=== PATIENT | male | born 1990 | race Hispanic/Latino ===

== ENCOUNTER 2021-10-24 21:40 | Emergency (ER) | payer OTHER ==
--- NOTE | 2021-10-24 23:22 | EDPHYS ---
Physician Documentation [facility] Name: Bennie Flores Age: 31 yrs Sex: Male : 1990 Arrival Date: 10/24/2021 Time: 21:44 Bed 16 Private MD: ED Physician Ashwin Canales HPI: 10/24 23:15 This 31 yrs old Male presents to ER via Ambulatory with complaints of Hand silke Injury - Left. 23:15 The patient or guardian reports decreased range of motion, injury, pain. The complaints silke affect the left hand diffusely. Context: The problem was sustained at home, resulted from a direct blow. Onset: The symptoms/episode began/occurred just prior to arrival. Modifying factors: The symptoms are alleviated by elevation, holding still, ice/coldpack to affected area, the symptoms are aggravated by movement, dependent position. Associated signs and symptoms: The patient has no apparent associated signs or symptoms. Severity of symptoms: At their worst the symptoms were moderate, in the emergency department the symptoms are unchanged. The patient has not experienced similar symptoms in the past. Historical: - Allergies: 22:06 Haldol; lg3 - Home Meds: 22:06 citalopram oral [Active]; Benztropine Mesylate Oral [Active]; Tegretol Oral [Active]; lg3 olanzapine oral [Active]; Hydroxyzine Oral [Active]; - PMHx: 22:06 Schizophrenia; Anxiety; Depressive disorder; lg3 - PSHx: 22:06 left ankle; lg3 - Immunization history:: Adult Immunizations up to date, Client reports having NOT received the Covid vaccine. - Social history:: Smoking status: Patient reports the use of cigarette tobacco products, smokes one pack cigarettes per day. Patient uses alcohol, but reports only rare drinking. - Family history:: not pertinent. ROS: 23:15 Constitutional: Negative for fever, chills, and weight loss, Eyes: Negative for injury, silke pain, redness, and discharge, ENT: Negative for injury, pain, and discharge, Neck: Negative for injury, pain, and swelling, Cardiovascular: Negative for chest pain, palpitations, and edema, Respiratory: Negative for shortness of breath, cough, wheezing, and pleuritic chest pain, Abdomen/GI: Negative for abdominal pain, nausea, vomiting, diarrhea, and constipation, Back: Negative for injury and pain, : Negative for injury, bleeding, discharge, and swelling, Skin: Negative for injury, rash, and discoloration, Neuro: Negative for headache, weakness, numbness, tingling, and seizure, Psych: Negative for depression, anxiety, suicide ideation, homicidal ideation, and hallucinations, Allergy/Immunology: Negative for hives, rash, and allergies, Endocrine: Negative for neck swelling, polydipsia, polyuria, polyphagia, and marked weight changes, Hematologic/Lymphatic: Negative for swollen nodes, abnormal bleeding, and unusual bruising. 23:15 MS/extremity: Positive for injury or acute deformity, contusion, decreased range of motion, pain, swelling, tenderness. Exam: 23:15 Constitutional: This is a well developed, well nourished patient who is awake, alert, silke and in no acute distress. Head/Face: Normocephalic, atraumatic. Eyes: Pupils equal round and reactive to light, extra-ocular motions intact. Lids and lashes normal. Conjunctiva and sclera are non-icteric and not injected. Cornea within normal limits. Periorbital areas with no swelling, redness, or edema. ENT: Nares patent. No nasal discharge, no septal abnormalities noted. Tympanic membranes are normal and external auditory canals are clear. Oropharynx with no redness, swelling, or masses, exudates, or evidence of obstruction, uvula midline. Mucous membranes moist. Neck: Trachea midline, no thyromegaly or masses palpated, and no cervical lymphadenopathy. Supple, full range of motion without nuchal rigidity, or vertebral point tenderness. No Meningismus. Chest/axilla: Normal chest wall appearance and motion. Nontender with no deformity. No lesions are appreciated. Cardiovascular: Regular rate and rhythm with a normal S1 and S2. No gallops, murmurs, or rubs. Normal PMI, no JVD. No pulse deficits. Respiratory: Lungs have equal breath sounds bilaterally, clear to auscultation and percussion. No rales, rhonchi or wheezes noted. No increased work of breathing, no retractions or nasal flaring. Abdomen/GI: Soft, non-tender, with normal bowel sounds. No distension or tympany. No guarding or rebound. No evidence of tenderness throughout. Back: No spinal tenderness. No costovertebral tenderness. Full range of motion. Skin: Warm, dry with normal turgor. Normal color with no rashes, no lesions, and no evidence of cellulitis. Neuro: Awake and alert, GCS 15, oriented to person, place, time, and situation. Cranial nerves II-XII grossly intact. Motor strength 5/5 in all extremities. Sensory grossly intact. Cerebellar exam normal. Normal gait. Psych: Awake, alert, with orientation to person, place and time. Behavior, mood, and affect are within normal limits. 23:15 Musculoskeletal/extremity: Extremities: grossly normal except: decreased ROM, deformity, pain, ROM: intact in all extremities, limited active range of motion due to pain, limited passive range of motion due to pain, Pulses: are normal with no appreciated deficits, Sensation intact. Compartment Syndrome exam of affected extremity: is normal. DVT Exam: negative Homans' sign noted on exam, no appreciated bluish discoloration, no erythema, no increased warmth, pain, swelling, tenderness. Vital Signs: 22:03 BP 124 / 74; Pulse 98; Resp 17 S; Temp 98.5(TE); Pulse Ox 98% on R/A; Weight 82.55 kg lg3 (R); Height 5 ft. 9 in. (175.26 cm) (R); Pain 10/10; 22:03 Body Mass Index 26.88 (82.55 kg, 175.26 cm) lg3 Procedures: 23:18 Splinting: Splint applied to left hand using Orthoglass splint, applied by tech. silke Examined by me, post splint application: neurovascular intact, 2+ distal pulses palpable, brisk capillary refill noted, Patient tolerated well. MDM: 23:00 Patient medically screened. silke 23:18 Differential diagnosis: closed fracture. Data reviewed: vital signs, nurses notes. Data silke interpreted: conveyor monitor: rate is 98 beats/min, rhythm is regular, Pulse oximetry: on room air is 98 %. Test interpretation: by ED physician or midlevel provider: plain radiologic studies. Counseling: I had a detailed discussion with the patient and/or guardian regarding: the historical points, exam findings, and any diagnostic results supporting the discharge/admit diagnosis, radiology results, the need for outpatient follow up, for definitive care, a orthopedic surgeon, a psychiatrist. 10/24 22:13 Order name: XRAY Hand LEFT 3 View lg3 10/24 23:14 Order name: Ulnar Gutter splint; Complete Time: 00:46 silke Administered Medications: 10/25 00:06 Drug: Ativan (LORazepam) 1 mg Route: PO; ke1 00:06 Drug: Geodon (ziprasidone) 10 mg Route: IM; Site: left vastus lateralis; ke1 00:06 Drug: [place] (HYDROcodone-acetaminophen) (7.5 mg-325 mg) 1 tabs Route: PO; ke1 Disposition Summary: 10/24/21 23:21 Discharge Ordered Location: Home silke Problem: new silke Symptoms: have improved silke Condition: Stable silke Diagnosis - Displaced fracture of shaft of fifth metacarpal bone, left hand silke - Schizophrenia, unspecified silke Followup: silke - With: Private Physician - When: 2 - 3 days - Reason: Recheck today's complaints, Continuance of care, Re-evaluation by your physician Followup: silke - With: Fredi Bear MD - When: 2 - 3 days - Reason: Recheck today's complaints, Continuance of care, Re-evaluation by your physician Discharge Instructions: - Discharge Summary Sheet silke - Boxer's Fracture silke - Metacarpal Fracture silke - Schizophrenia silke - Metacarpal Fracture, [id number] silke - Managing Schizophrenia silke Forms: - Medication Reconciliation Form silke - Thank You Letter silke - Antibiotic Education silke - Prescription Opioid Use silke Prescriptions: - Ibuprofen 600 mg Oral Tablet - take 1 tablet by ORAL route every 6 hours As needed take with food; 20 tablet; silke Refills: 0, Product Selection Permitted - Tylenol-Codeine #3 300 mg-30 mg Oral - take 2 tablet by ORAL route every 6 hours; 15 tablet; Refills: 0, Product [facility] Selection Permitted Signatures: Dispatcher [employer] Ashwin Rivera MD MD cha Gibson, Lacie RN RN lg3 Alison Franco RN RN ke1
--- NOTE | 2021-10-24 23:22 | ER ---
Nurse's Notes [facility] Name: Bennie Flores Age: 31 yrs Sex: Male : 1990 Arrival Date: 10/24/2021 Time: 21:44 Bed 16 Private MD: Diagnosis: Displaced fracture of shaft of fifth metacarpal bone, left hand;Schizophrenia, unspecified Presentation: 10/24 22:03 Chief complaint: Patient states: sitting outside and started hearing voices and seeing lg3 people. thought he was swinging at this person he was seeing but accidently hit ground instead. left hand swelling and pain. Coronavirus screen: Client denies travel out of the [place] in the last 14 days. At this time, the client does not indicate any symptoms associated with coronavirus-19. Ebola Screen: No symptoms or risks identified at this time. Initial Sepsis Screen: Does the patient meet any 2 criteria? No. Patient's initial sepsis screen is negative. Does the patient have a suspected source of infection? No. Patient's initial sepsis screen is negative. Risk Assessment: Do you want to hurt yourself or someone else? Patient reports no desire to harm self or others. Onset of symptoms was October 24, 2021. 22:03 Method Of Arrival: Ambulatory lg3 22:03 Acuity: TEETEE 3 lg3 Triage Assessment: 22:06 General: Appears in no apparent distress. uncomfortable, Behavior is calm, cooperative. lg3 Pain: Complains of pain in left hand. EENT: No deficits noted. No signs and/or symptoms were reported regarding the EENT system. Neuro: No deficits noted. Level of Consciousness is awake, alert, obeys commands, Oriented to person, place, time, situation. Cardiovascular: No deficits noted. Denies chest pain, shortness of breath. Respiratory: No deficits noted. Airway is patent Trachea midline Respiratory effort is even, unlabored, Respiratory pattern is regular, symmetrical. GI: No deficits noted. No signs and/or symptoms were reported involving the gastrointestinal system. Abdomen is round non-distended. : No deficits noted. No signs and/or symptoms were reported regarding the genitourinary system. Derm: No deficits noted. swelling to left hand. Musculoskeletal: No deficits noted. Circulation, motion, and sensation intact. Capillary refill < 3 seconds, Range of motion: intact in all extremities. Historical: - Allergies: 22:06 Haldol; lg3 - Home Meds: 22:06 citalopram oral [Active]; Benztropine Mesylate Oral [Active]; Tegretol Oral [Active]; lg3 olanzapine oral [Active]; Hydroxyzine Oral [Active]; - PMHx: 22:06 Schizophrenia; Anxiety; Depressive disorder; lg3 - PSHx: 22:06 left ankle; lg3 - Immunization history:: Adult Immunizations up to date, Client reports having NOT received the Covid vaccine. - Social history:: Smoking status: Patient reports the use of cigarette tobacco products, smokes one pack cigarettes per day. Patient uses alcohol, but reports only rare drinking. - Family history:: not pertinent. Screenin:10 Abuse screen: Denies threats or abuse. Denies injuries from another. Nutritional lg3 screening: No deficits noted. Tuberculosis screening: No symptoms or risk factors identified. Fall Risk None identified. Vital Signs: 22:03 BP 124 / 74; Pulse 98; Resp 17 S; Temp 98.5(TE); Pulse Ox 98% on R/A; Weight 82.55 kg lg3 (R); Height 5 ft. 9 in. (175.26 cm) (R); Pain 10/10; 22:03 Body Mass Index 26.88 (82.55 kg, 175.26 cm) lg3 ED Course: 21:44 Patient arrived in ED. kz 22:06 Triage completed. lg3 22:06 Arm band placed on right wrist. lg3 22:57 XRAY Hand LEFT 3 View In Process Unspecified. EDMS 23:00 Ashwin Canales MD is Attending Physician. silke 23:20 Fredi Bear MD is Referral Physician. silke 23:41 Alison Franco RN is Primary Nurse. ke1 10/25 00:46 Orthoglass splint: Ulnar gutter/Boxer splint applied on left forearm. ds4 01:00 No provider procedures requiring assistance completed. Patient did not have IV access ke1 during this emergency room visit. Administered Medications: 00:06 Drug: Ativan (LORazepam) 1 mg Route: PO; ke1 00:06 Drug: Geodon (ziprasidone) 10 mg Route: IM; Site: left vastus lateralis; ke1 00:06 Drug: [place] (HYDROcodone-acetaminophen) (7.5 mg-325 mg) 1 tabs Route: PO; ke1 Outcome: 10/24 23:21 Discharge ordered by MD. edouard 10/25 01:00 Discharged to home ambulatory. ke1 Condition: good Discharge instructions given to patient, Instructed on discharge instructions, follow up and referral plans. 01:02 Instructed on medication usage, Demonstrated understanding of instructions, follow-up ke1 care, medications, Prescriptions given X 2. 01:02 Patient left the ED. ke1 Signatures: Dispatcher [employer] EDMS Ashwin Canales MD MD cha Swanson, Donovan ds4 Laura Nur, RN RN [email or web address] Alison Franco RN RN ke1 Natacha Arvizu
[2021-10-24] MEDS ORDERED: HYDROCODONE/APAP 7.5/325 MG TAB ONE (23:48)
[2021-10-24] MEDS ORDERED: LORAZEPAM 1 MG TABLET ONE (23:49)
[2021-10-24] MEDS ORDERED: ZIPRASIDONE MESYLA 20 MG/VIAL IM ONE (23:49)
[2021-10-25 03:31] VITALS: BP 124/74; TEMP 98.5; O2SAT 98
--- NOTE | 2021-10-25 15:32 | RAD REPORT ---
EXAM DESCRIPTION: RAD - Hand Left 3 View - 10/24/2021 10:55 pm CLINICAL HISTORY: DEFORMITY COMPARISON: None. TECHNIQUE: XR HAND 3 OR MORE VIEWS 10/24/2021 10:13 PM CDT FINDINGS: There is a mildly displaced and angulated fracture of the midshaft of the fifth metacarpal . Joint spaces are preserved. There is soft tissue swelling overlying the fifth metacarpal. IMPRESSION: Fifth metacarpal fracture. Electronically signed by: Obi Hunt MD 10/24/2021 11:12 PM CDT Due to temporary technical issues with the PACS/Fluency reporting system, reports are being signed by the in house radiologists without review as a courtesy to insure prompt reporting. The interpreting radiologist is fully responsible for the content of the report.
== END 2021-10-25 01:02 | disposition home or self-care (01) ==
LOC: ER 21:40
PROC: 2W3DX1Z Immobilization of Left Lower Arm using Splint (ICD-10-PCS; principal; 2021-10-25)
DX: S62.327A Displaced fracture of shaft of fifth metacarpal bone, left hand, initial encounter for closed fracture (principal); F20.9 Schizophrenia, unspecified; W22.8XXA Striking against or struck by other objects, initial encounter; Y92.009 Unspecified place in unspecified non-institutional (private) residence as the place of occurrence of the external cause; F17.210 Nicotine dependence, cigarettes, uncomplicated; Z88.5 Allergy status to narcotic agent
CPT/HCPCS: 73130; 96372; 99284; 29125; J3486

== ENCOUNTER 2023-04-10 09:13 | Emergency (ER) | payer OTHER ==
--- OUTSIDE RECORDS SUMMARY | 2023-04-10 09:16 | XMS REPORT | Continuity of Care Document ---
:1990 Author Organization [facility] Address [address] [place] [id number] Care Team Providers Name Role Phone RAISA Attending Clinician Unavailable RAISA Admitting Clinician Unavailable Problems This patient has no known problems. Allergies, Adverse Reactions, Alerts This patient has no known allergies or adverse reactions. Medications This patient has no known medications. Procedures This patient has no known procedures. Encounters Start End Encounter Admission Attending Care Care Encounter Source Date/Time Date/Time Type Type Clinicians Facility Department ID 2022-02-06 2022-02-06 Outpatient [facility]LOOD [facility] [id number] 03:41:00 03:41:00 HN [id number] [facility] Program Results This patient has no known results.
[2023-04-10] MEDS ORDERED: AMOX/K CLAV 875 MG TAB ONE (09:40)
[2023-04-10] MEDS ORDERED: TDAP (DIPHTH,PERTUSS(ACELL),TET VAC) 0.5 ML VIAL IMVAC ONE (09:41)
[2023-04-10] MEDS ORDERED: LIDOCAINE 1% MPF 5 ML VIAL ONE (09:47)
--- NOTE | 2023-04-10 10:00 | EDPHYS ---
Physician Documentation [facility] Name: Bennie Flores Age: 33 yrs Sex: Male : 1990 Arrival Date: 04/10/2023 Time: : Bed 6 Private MD: ED Physician Sundar Ulloa HPI: 04/10 10:02 This 33 yrs old Male presents to ER via Ambulatory with complaints of Dog Bite.kb 10:02 The patient was bitten on the left calf, by a dog, outdoors. Onset: The kb symptoms/episode began/occurred just prior to arrival. Secondary to the bite the patient reports a laceration, a puncture wound. Associated signs and symptoms: Pertinent positives: tenderness. Severity of symptoms: At their worst the symptoms were mild, moderate, in the emergency department the symptoms are unchanged. The patient has not experienced similar symptoms in the past. The patient has not recently seen a physician. Pt was walking to the store and the neighbors dog came out and bit his calf. PD notified prior to pt's arrival. Historical: - Allergies: 09:21 Haldol; ap3 - PMHx: 09:21 Anxiety; depressive disorder; Schizophrenia; ap3 - PSHx: 09:21 Left ankle; ap3 - Immunization history:: Client reports receiving the 2nd dose of the Covid vaccine, Last tetanus immunization: not immunized. - Social history:: Smoking status: Patient reports the use of cigarette tobacco products, smokes one pack cigarettes per day. ROS: 10:01 Constitutional: Negative for fever, chills, and weight loss. kb 10:01 Skin: Positive for laceration(s), puncture, of the left calf. 10:01 All other systems are negative. Exam: 10:01 Constitutional: This is a well developed, well nourished patient who is awake, alert, kb and in no acute distress. Head/Face: Normocephalic, atraumatic. ENT: Moist Mucous membranes Cardiovascular: Regular rate Respiratory: Respirations even and unlabored. No increased work of breathing. Talking in full sentences MS/ Extremity: Pulses equal, no cyanosis. Neurovascular intact. Full, normal range of motion. Neuro: Awake and alert, GCS 15, oriented to person, place, time, and situation. Moves all extremities. Normal gait. 10:01 Skin: injury, bite(s), superficial, of the left calf, laceration(s), the wound is approximately 3 cm(s), of the left calf, that can be described as clean, no foreign body, linear, without bleeding. Vital Signs: 09:20 BP 114 / 67; Pulse 88; Resp 18; Temp 98.8; Pulse Ox 100% ; Weight 90.72 kg; Pain 2/10; ap3 09:20 BP 118 / 72; Pulse 85; Resp 16; Pulse Ox 99% ; ko1 09:20 Pain Scale: Adult ap3 Laceration: 09:59 Wound Repair of 3cm ( 1.2in ) subcutaneous laceration to left calf. Linear shaped.. kb Distal neuro/vascular/tendon intact. Anesthesia: Wound infiltrated with 5 mls of 1% lidocaine. Wound prep: Extensive cleansing with betadine by me, Wound irrigation with saline by me. Skin closed with 3 4-0 Prolene using simple sutures and sterile technique. Patient tolerated well. MDM: 09:17 Patient medically screened. kb 10:02 Differential diagnosis: superficial laceration, tendon injury, vascular injury. Data kb reviewed: vital signs, nurses notes. Historians other than the Patient: Parent: mother. Counseling: I had a detailed discussion with the patient and/or guardian regarding the historical points, exam findings, and any diagnostic results supporting the discharge/admit diagnosis, the need for outpatient follow up, a family practitioner, to return to the emergency department if symptoms worsen or persist or if there are any questions or concerns that arise at home. 04/10 09:21 Order name: Gloves, Sterile; Complete Time: 09:33 kb 04/10 09:21 Order name: Prolene, Sutures; Complete Time: 09:33 kb 04/10 09:21 Order name: Setup Suture Tray; Complete Time: 09:33 kb Administered Medications: 09:30 Drug: Amoxicillin-Clavulanate PO 875 mg Route: PO; ko1 09:33 Drug: Tetanus-Diphtheria Toxoid IM Adult 0.5 ml {Inpatient Care Manager Rn: [employer] ko1 Exp: 11/15/2024. Lot #: [id number]. } Route: IM; Site: left deltoid; 09:52 Drug: Lidocaine Infiltration (1 %) 1 vials {Note: Administered by Nichole Jasper, ld1 TIN WHIZ MACHINE OPERATOR.} Volume: 5 ml; Route: Infiltration; Disposition: 10:32 Co-signature as Attending Physician, Sundar Ulloa MD I reviewed the patient's care rt provided by the Advanced Practice Provider and agree with the diagnosis and treatment plan. Disposition Summary: 04/10/23 10:00 Discharge Ordered Location: Home kb Condition: Stable kb Diagnosis - Bitten by dog kb Followup: kb - With: Emergency Department - When: As needed - Reason: Worsening of condition Followup: kb - With: Private Physician - When: 2 - 3 days - Reason: Recheck today's complaints, Continuance of care, Re-evaluation by your physician Discharge Instructions: - Discharge Summary Sheet kb - Animal Bite, Adult, [id number] kb Forms: - Medication Reconciliation Form kb - Thank You Letter kb - Antibiotic Education kb - Prescription Opioid Use kb - Patient Portal Instructions kb - Leadership Thank You Letter kb Prescriptions: - Augmentin 875-125 mg Oral Tablet - take 1 tablet by ORAL route every 12 hours for 10 days; 20 tablet; Refills: 0, kb Product Selection Permitted Signatures: Nichole Hutchinson FNP-C FNP-Samantha Garcia, RN RN ap3 Vandana Church, RN RN ld1 Margarette Recinos, RN RN ko1 Sundar Ulloa MD MD rt
--- NOTE | 2023-04-10 10:00 | ER ---
Nurse's Notes [facility] Name: Bennie Flores Age: 33 yrs Sex: Male : 1990 Arrival Date: 04/10/2023 Time: : Bed 6 Private MD: Diagnosis: Bitten by dog Presentation: 04/10 09:20 Chief complaint: Patient states: he was bit by a neighbors dog this morning on his left ap3 lower extremity. animal control was notified fire prevention captain. case number was given to triage nurse. case # [id number]. Coronavirus screen: At this time, the client does not indicate any symptoms associated with coronavirus-19. Ebola Screen: No symptoms or risks identified at this time. Initial Sepsis Screen: Does the patient meet any 2 criteria? No. Patient's initial sepsis screen is negative. Does the patient have a suspected source of infection? No. Patient's initial sepsis screen is negative. Risk Assessment: Do you want to hurt yourself or someone else? Patient reports no desire to harm self or others. Onset of symptoms was April 10, 2023. 09:20 Method Of Arrival: Ambulatory ap3 09:20 Acuity: TEETEE 4 ap3 Triage Assessment: 09:22 Bite description: bite sustained to left leg by a dog, animal information: ap3 vaccination(s) is unknown. General: Appears in no apparent distress. Behavior is calm, cooperative, appropriate for age. Pain: Complains of pain in left leg. Neuro: Level of Consciousness is awake, alert, obeys commands, Oriented to person, place, time, situation. Cardiovascular: Patient's skin is warm and dry. Respiratory: Airway is patent Respiratory effort is even, unlabored, Respiratory pattern is regular, symmetrical. Historical: - Allergies: 09:21 Haldol; ap3 - PMHx: 09:21 Anxiety; depressive disorder; Schizophrenia; ap3 - PSHx: 09:21 Left ankle; ap3 - Immunization history:: Client reports receiving the 2nd dose of the Covid vaccine, Last tetanus immunization: not immunized. - Social history:: Smoking status: Patient reports the use of cigarette tobacco products, smokes one pack cigarettes per day. Screenin:20 [facility] ED Fall Risk Assessment (Adult) History of falling in the last 3 months, ko1 including since admission No falls in past 3 months (0 pts) Confusion or Disorientation No (0 pts) Intoxicated or Sedated No (0 pts) Impaired Gait No (0 pts) Mobility Assist Device Used No (0 pt) Altered Elimination No (0 pt) Score/Fall Risk Level 0 - 2 = Low Risk Oriented to surroundings, Maintained a safe environment, Educated pt \T\ family on fall prevention, incl call for assistance when getting out of bed, Assessed \T\ reinforced patient's understanding of fall precautions, Provided non-skid footwear, Hourly rounding (assess needs \T\ fall precautionary measures) done, Used ambulatory aids as needed (educated on \T\ assisted with), Used gait belt as appropriate. 09:22 Abuse screen: Denies threats or abuse. Nutritional screening: No deficits noted. ap3 Tuberculosis screening: No symptoms or risk factors identified. Assessment: 09:20 General: Appears in no apparent distress. Behavior is calm, cooperative, appropriate ko1 for age. Pain: Complains of pain in left calf. Neuro: No deficits noted. Cardiovascular: No deficits noted. Respiratory: No deficits noted. GI: No deficits noted. : No deficits noted. EENT: No deficits noted. Derm: Skin laceration Skin is pink, warm \T\ dry. Musculoskeletal: No deficits noted. Injury Description: Laceration sustained to left calf. Vital Signs: 09:20 BP 114 / 67; Pulse 88; Resp 18; Temp 98.8; Pulse Ox 100% ; Weight 90.72 kg; Pain 2/10; ap3 09:20 BP 118 / 72; Pulse 85; Resp 16; Pulse Ox 99% ; ko1 09:20 Pain Scale: Adult ap3 ED Course: 09:16 Patient arrived in ED. ts1 09:17 Nichole Hutchinson FNP-C [facility]. kb 09:17 Sundar Ulloa MD is Attending Physician. kb 09:20 Patient has correct armband on for positive identification. Bed in low position. ko1 Provided Education on: na. 09:20 Assist provider with laceration repair that was between 2.6 to 7.5 cm using sutures. ko1 Set up tray. Performed by Nichole ROBERTO Dressed with 4X4s, Kerlix, Patient tolerated well. Patient did not have IV access during this emergency room visit. 09:21 Triage completed. ap3 09:22 Arm band placed on right wrist. ap3 10:01 Margarette Recinos, RN is Primary Nurse. ko1 Administered Medications: 09:30 Drug: Amoxicillin-Clavulanate PO 875 mg Route: PO; ko1 09:33 Drug: Tetanus-Diphtheria Toxoid IM Adult 0.5 ml {Web Operations Lead: [employer] ([facility]). ko1 Exp: 11/15/2024. Lot #: [id number]. } Route: IM; Site: left deltoid; 09:52 Drug: Lidocaine Infiltration (1 %) 1 vials {Note: Administered by jon Park.} Volume: 5 ml; Route: Infiltration; Medication: 09:20 Vaccine Information Statement (VIS) provided today. Questions and/or concerns ko1 addressed. VIS edition date: April 10, 2023. Outcome: 10:00 Discharge ordered by MD. kb 10:08 Discharged to home ambulatory, with family. ko1 10:08 Condition: stable 10:08 Discharge instructions given to patient, family, Instructed on discharge instructions, follow up and referral plans. medication usage, wound care, Demonstrated understanding of instructions, follow-up care, medications, wound care, Prescriptions given X 1. 10:15 Patient left the ED. ko1 Signatures: Nichole Hutchinson, PARDEEP ALONSO-Samantha Garcia RN RN ap3 Vandana Church RN RN ld1 Margarette Recinos, RN RN ko1 Michelle Alberts PAS PAS ts1
[2023-04-10 10:26] VITALS: BP 114/67; TEMP 98.8; O2SAT 100
== END 2023-04-10 10:15 | disposition home or self-care (01) ==
LOC: ER 09:13
PROC: 0HQLXZZ Repair Left Lower Leg Skin, External Approach (ICD-10-PCS; principal; 2023-04-10)
DX: S81.812A Laceration without foreign body, left lower leg, initial encounter (principal); W54.0XXA Bitten by dog, initial encounter; F17.210 Nicotine dependence, cigarettes, uncomplicated; Z23 Encounter for immunization; Z88.5 Allergy status to narcotic agent
CPT/HCPCS: 12002; J2001; 90471; 99284

== ENCOUNTER 2023-04-20 15:28 | Emergency (ER) | payer OTHER ==
--- OUTSIDE RECORDS SUMMARY | 2023-04-20 15:31 | XMS REPORT | Continuity of Care Document ---
:1990 Author Organization [facility] t Address [address] [place] [address] [place] [id number] Care Team Providers Name Role Phone Pcp, Patient Does Not Have A Primary Care Physician +[id number] RAISA Attending Clinician Unavailable Doctor Unassigned, Black Attending Clinician Unavailable VIC LOVELACE Attending Clinician Unavailable Vic Stauffer Attending Clinician ANTELMO DORANTES Attending Clinician Unavailable Antelmo Dorantes MD Attending Clinician Lab, Ang - Db Attending Clinician Unavailable RAISA Admitting Clinician Unavailable Payers Payer Name Policy Type Policy Number Effective Date Expiration Date [facility] [id number] 2021 MEDICAID 00:00:00 [place] [id number] 2011 2021 00:00:00 00:00:00 Problems Condition Condition Condition Status Onset Resolution Last Treating Co mments Source Name Details Category Date Date Treatment Clinician Date No known No known Disease Unive rs active active ity of problems problems [facility] Allergies, Adverse Reactions, Alerts Allergy Allergy Status Severity Reaction(s) Onset Inactive Treating Comm ents Source Name Type Date Date Clinician NO KNOWN Drug Active Univers ALLERGIE Class ity of S [facility] Social History Social Habit Start Date Stop Date Quantity Comments Source Exposure to 2021-12-11 2021-12-21 Not sure [facility]-CoV-2 00:00:00 12:50:00 [facility] (event) [place] Alcohol intake 2021-12-21 2021-12-21 Lifetime University of 00:00:00 00:00:00 non-drinker [facility] ([facility]) [place] Tobacco use and 2021-11-07 2021-11-07 Never used Universit y of exposure 00:00:00 00:00:00 [facility] Sex Assigned At [birth year] [facility] y of 00:00:00 00:00:00 [facility] Smoking Status Start Date Stop Date Source Current every day smoker 2021-[facility]07 [facility] Ordered Filled Start Stop Current Ordering Indication Dosage Frequency Signature Comments Components Source Medication Medication Date Date Medication? Clinician (SIG) Name Name acetaminoph Yes 4647 1{tbl} Take 1 Un avinash en-codeine 4-14 tablet by ity of (TYLENOL-CO 00:00: mouth [place] DEINE #3) 00 every 4 Medical 300-30 mg (four) Branch tablet hours as needed for Pain (scale 4-6) or Pain (scale 7-10). Indication s: acute pain acetaminoph Yes 4647 1{tbl} Take 1 Un avinash en-codeine 4-14 tablet by ity of (TYLENOL-CO 00:00: mouth [place] DEINE #3) 00 every 4 Medical 300-30 mg (four) Branch tablet hours as needed for Pain (scale 4-6) or Pain (scale 7-10). Indication s: acute pain acetaminoph Yes 4647 1{tbl} Take 1 Un avinash en-codeine 4-14 tablet by ity of (TYLENOL-CO 00:00: mouth [place] DEINE #3) 00 every 4 Medical 300-30 mg (four) Branch tablet hours as needed for Pain (scale 4-6) or Pain (scale 7-10). Indication s: acute pain Vital Signs Vital Name Observation Time Observation Value Comments Source Respiratory rate 2021-12-21 17:51:00 17 /[facility] height 2021-12-21 17:51:00 175.3 cm [facility] Body weight 2021-12-21 17:51:00 83.416 kg [facility] BMI 2021-12-21 17:51:00 27.16 kg/m2 [facility] Systolic blood 2021-12-21 17:51:00 99 mm[Hg] Univer sity of pressure [facility] Diastolic blood 2021-12-21 17:51:00 56 mm[Hg] Unive rsity of pressure [facility] Heart rate 2021-12-21 17:51:00 87 /min [facility] Procedures Procedure Date / Time Performed Performing Clinician [facility] e EXTERNAL PROVIDER 2022-01-24 05:01:00 Doctor Unassigned, No [facility] [place] RECORDS Name [facility] Branch EXTERNAL PROVIDER 2022-01-12 05:01:00 Doctor Unassigned, No Univ ersity [facility] [place] [facility] RECORDS Name [facility] Encounters Start End Encounter Admission Attending Care Care Encounter Source Date/Time Date/Time Type Type Clinicians Facility Department ID 2022-02-06 2022-02-06 Outpatient DANITZA FLOOD [address] 03:41:00 03:41:00 HN [id number] da [facility] Outre h Program 2022-01-24 2022-01-24 Orders Doctor CHEEMA [id number] Univers 00:00:00 00:00:00 Only Unassigned, ALESHIA [id number] ity of Black [facility] [id number] Derek as [phone] [address] 2022-01-12 2022-01-12 Orders Doctor CHEEMA [id number] Univers 00:00:00 00:00:00 Only Unassigned, ALESHIA [id number] ity of Black HOSPITAL [id number] Derek as [phone] [address] 2021-12-21 2021-12-21 Outpatient R MARK OKBERNARDA [facility] [id number] Univers 13:00:00 23:59:00 VIC itanastacio of [facility] 2021-12-21 2021-12-21 Office Mark OKBERNARDA [id number] Univers 13:00:00 13:15:00 Visit [facility] [id number] it y of [place] [id number] Derek as EMIL?BLEA [phone] Wy sharmila BENJAMIN [address] [place] [address] 2021-12-21 2021-12-21 Outpatient Fady LOVELACE [facility] [id number] Univers 13:00:00 13:00:00 [facility] 2021-12-21 2021-12-21 [facility] [id number] Univers 08:00:00 08:00:00 [facility] 2021-11-29 2021-11-29 [facility] [id number] Univers 13:03:06 23:59:00 [facility] 2021-11-29 2021-11-29 [facility] [id number] Univers 13:15:00 13:30:00 Visit [facility] [id number] it y of [place] [id number] Derek as EMIL?BLEA [phone] Wy sharmila BENJAMIN [address] [place] [address] 2021-11-29 2021-11-29 [facility] [id number] Univers 13:15:00 13:15:00 [facility] 2021-11-08 2021-11-08 Out[facility] NUT [id number] Univers 00:00:00 00:00:00 ANTELMO anastacio [facility] 2021-11-08 2021-11-08 Telephone [facility] 1.2.840.114 [id number] Univers 00:00:00 00:00:00 Antelmo RAHMAN [id number] i ty of [facility] [id number] [phone] Me sharmila JORGE [address] [place] [address] 2021-11-08 2021-11-08 Telephone [facility] [id number] Univers 00:00:00 00:00:00 Vic S HEALTH [id number] it y of [place] [id number] Derek as EMIL?BLEA [id number] Wy sharmila BENJAMIN [address] [place] [address] 2021-11-08 2021-11-08 Orders Doctor DENI 1.2.840.114 [id number] Univers 00:00:00 00:00:00 Only Unassigned, ALESHIA [id number] ity of Black [facility] [id number] Derek as [phone] [address] 2021-11-07 2021-11-07 Carrier Operator Lab, Ang - Db [facility] [id number] Univers 14:15:00 14:30:00 Visit Vic Lovelace [facility] [id number] ity of [place] [id number] Derek as EMIL?BLEA [phone] Wy laureenandrew BENJAMIN [address] [facility] OFFICE [facility] 2021-11-07 2021-11-07 [facility] [id number] Univers 14:15:00 14:15:00 [facility] 2021-11-07 2021-11-07 [facility] 1.2.840.114 [id number] Univers 13:00:00 13:51:23 Visit [facility] [id number] it y of [place] [id number] Derek as EMIL?BLEA [phone] Wy laureenandrew BENJAMIN [address] [facility] OFFICE [facility] 2021-11-07 2021-11-07 Outpatient Fady LOVELACE [facility] [id number] Univers 13:00:00 13:51:23 [facility] 2021-11-07 2021-11-07 Outpatient R MIAH [facility] [id number] Univers 13:15:00 13:15:00 [facility] 2021-11-06 2021-11-06 [facility] [id number] Univers 15:30:00 16:00:00 Visit [facility] [id number] it y of [place] [id number] Derek as EMIL?BLEA [phone] Wy laureenandrew BENJAMIN [address] [facility] OFFICE [facility] 2021-11-06 2021-11-06 [facility] [id number] Univers 15:30:00 15:30:00 VIC [facility] [place] [facility] 2021-11-06 2021-11-06 Outpatient R MARK [facility] [id number] Univers 15:30:00 15:30:00 [facility] 2021-11-06 2021-11-06 Orders Doctor DENI 1.2.840.114 [id number] Univers 00:00:00 00:00:00 Only Unassigned, ALESHIA [id number] ity of Black [facility] [id number] [facility] as [phone] [place] [address] Branch Results This patient has no known results.
--- NOTE | 2023-04-20 15:40 | ER ---
Nurse's Notes [facility] Name: Bennie Flores Age: 33 yrs Sex: Male : 1990 Arrival Date: 04/20/2023 Time: 15:28 Bed IW1 Private MD: Diagnosis: Encounter for removal of sutures Presentation: 04/20 15:37 Chief complaint: Patient states: Needs stitches removed from LLE, place 04/10. ll1 Coronavirus screen: Client denies travel out of the [place] in the last 14 days. At this time, the client does not indicate any symptoms associated with coronavirus-19. Ebola Screen: Patient denies travel to an Ebola-affected area in the 21 days before illness onset. Initial Sepsis Screen: Does the patient meet any 2 criteria? No. Patient's initial sepsis screen is negative. Does the patient have a suspected source of infection? Yes: Skin breakdown/wound. Risk Assessment: Do you want to hurt yourself or someone else? Patient reports no desire to harm self or others. Onset of symptoms was April 10, 2023. 15:37 Method Of Arrival: Ambulatory ll1 15:37 Acuity: TEETEE 5 ll1 Triage Assessment: 15:45 General: Appears in no apparent distress. Behavior is calm, cooperative, appropriate ll1 for age. Pain: Denies pain. Derm: Reports stitches to LLE removed by Sun Flores NP. Site covered with band aid. Tolerated well. Historical: - Allergies: 15:38 Haldol; ll1 - PMHx: 15:38 Anxiety; depressive disorder; Schizophrenia; ll1 - PSHx: 15:38 Left ankle; ll1 - Immunization history:: Adult Immunizations up to date. - Social history:: Smoking status: Patient reports the use of cigarette tobacco products, smokes one-half pack cigarettes per day. Screenin:46 [facility] ED Fall Risk Assessment (Adult) Score/Fall Risk Level 0 - 2 = Low Risk ll1 Oriented to surroundings, Maintained a safe environment, Educated pt \T\ family on fall prevention, incl call for assistance when getting out of bed, Hourly rounding (assess needs \T\ fall precautionary measures) done. Abuse screen: Denies threats or abuse. Nutritional screening: No deficits noted. Tuberculosis screening: No symptoms or risk factors identified. Vital Signs: 15:37 BP 119 / 69; Pulse 82; Resp 20; Temp 99.6; Pulse Ox 97% ; ll1 ED Course: 15:29 Patient arrived in ED. rg4 15:31 Patria Flores FNP-C is [facility]. snw 15:31 Nate Cleveland MD is Attending Physician. snw 15:38 Triage completed. ll1 15:38 Arm band placed on. ll1 15:46 Patient has correct armband on for positive identification. Bed in low position. ll1 Provided Education on: n/a. 15:46 No provider procedures requiring assistance completed. Patient did not have IV access ll1 during this emergency room visit. Administered Medications: No medications were administered Medication: 15:46 VIS not applicable for this client. ll1 Outcome: 15:39 Discharge ordered by . snw 15:46 Discharged to home ambulatory, ll1 15:46 Condition: stable 15:46 Discharge instructions given to patient, Instructed on discharge instructions, follow up and referral plans. wound care, Demonstrated understanding of instructions, follow-up care, wound care, 15:46 Patient left the ED. ll1 Signatures: Patria Flores FNP-C FNP-Linda Miller rg4 Amadeo Rivers, RN RN ll1
--- NOTE | 2023-04-20 15:40 | EDPHYS ---
Physician Documentation [facility] Name: Bennie Flores Age: 33 yrs Sex: Male : 1990 Arrival Date: 04/20/2023 Time: 15:28 Bed IW1 Private MD: ED Physician Nate Cleveland HPI: 04/20 15:42 This 33 yrs old Male presents to ER via Ambulatory with complaints of Suture snw Removal. 15:42 The patient has sutures on the medial aspect of left calf. Previous treatment: the care snw was rendered at [facility], Treatment type: The patient's original treatment included sutures, Outpatient prescription(s): The patient was given prescription(s) for Augmentin, 04/10/23. The patient has not experienced similar symptoms in the past. Historical: - Allergies: 15:38 Haldol; ll1 - PMHx: 15:38 Anxiety; depressive disorder; Schizophrenia; ll1 - PSHx: 15:38 Left ankle; ll1 - Immunization history:: Adult Immunizations up to date. - Social history:: Smoking status: Patient reports the use of cigarette tobacco products, smokes one-half pack cigarettes per day. ROS: 15:41 Constitutional: Negative for fever, chills, and weight loss, Eyes: Negative for injury, snw pain, redness, and discharge, ENT: Negative for injury, pain, and discharge, Neck: Negative for injury, pain, and swelling, Cardiovascular: Negative for chest pain, palpitations, and edema, Respiratory: Negative for shortness of breath, cough, wheezing, and pleuritic chest pain, Abdomen/GI: Negative for abdominal pain, nausea, vomiting, diarrhea, and constipation, Back: Negative for injury and pain, : Negative for injury, bleeding, discharge, and swelling, MS/Extremity: Negative for injury and deformity, Skin: Negative for injury, rash, and discoloration, here for suture removal Neuro: Negative for headache, weakness, numbness, tingling, and seizure, Exam: 15:40 Constitutional: This is a well developed, well nourished patient who is awake, alert, snw and in no acute distress. Head/Face: Normocephalic, atraumatic. Eyes: Pupils equal round and reactive to light, extra-ocular motions intact. Lids and lashes normal. Conjunctiva and sclera are non-icteric and not injected. Cornea within normal limits. Periorbital areas with no swelling, redness, or edema. ENT: Nares patent. No nasal discharge, no septal abnormalities noted. Tympanic membranes are normal and external auditory canals are clear. Oropharynx with no redness, swelling, or masses, exudates, or evidence of obstruction, uvula midline. Mucous membranes moist. Neck: Trachea midline, no thyromegaly or masses palpated, and no cervical lymphadenopathy. Supple, full range of motion without nuchal rigidity, or vertebral point tenderness. No Meningismus. Chest/axilla: Normal chest wall appearance and motion. Nontender with no deformity. No lesions are appreciated. Cardiovascular: Regular rate and rhythm with a normal S1 and S2. No gallops, murmurs, or rubs. Normal PMI, no JVD. No pulse deficits. Respiratory: Lungs have equal breath sounds bilaterally, clear to auscultation and percussion. No rales, rhonchi or wheezes noted. No increased work of breathing, no retractions or nasal flaring. Abdomen/GI: Soft, non-tender, with normal bowel sounds. No distension or tympany. No guarding or rebound. No evidence of tenderness throughout. Back: No spinal tenderness. No costovertebral tenderness. Full range of motion. MS/ Extremity: Pulses equal, no cyanosis. Neurovascular intact. Full, normal range of motion. Neuro: Awake and alert, GCS 15, oriented to person, place, time, and situation. Cranial nerves II-XII grossly intact. Motor strength 5/5 in all extremities. Sensory grossly intact. Cerebellar exam normal. Normal gait. Psych: Awake, alert, with orientation to person, place and time. Behavior, mood, and affect are within normal limits. 15:40 Skin: Appearance: normal except for affected area, injury, laceration to left calf, sutures x 3 placed on 04/10/23. Pt completed Augmentin rx. No c/o, Wound recheck: Suture laceration closure: the wound is healing well, the edges are well approximated, Vital Signs: 15:37 BP 119 / 69; Pulse 82; Resp 20; Temp 99.6; Pulse Ox 97% ; ll1 MDM: 15:39 Patient medically screened. snw 15:41 Data reviewed: vital signs, nurses notes. Counseling: I had a detailed discussion with snw the patient and/or guardian regarding the historical points, exam findings, and any diagnostic results supporting the discharge/admit diagnosis, the need for outpatient follow up, for definitive care, to return to the emergency department if symptoms worsen or persist or if there are any questions or concerns that arise at home. Special discussion: Based on the history and exam findings, there is no indication for further emergent testing or inpatient evaluation. I discussed with the patient/guardian the need to see the primary care provider for further evaluation of the symptoms. Administered Medications: No medications were administered Disposition: 16:11 Co-signature as Attending Physician, Nate Cleveland MD I reviewed the patient's care rn provided by the Advanced Practice Provider and agree with the diagnosis and treatment plan. Disposition Summary: 04/20/23 15:39 Discharge Ordered Notes: Location: Home snw Condition: Stable snw Diagnosis - Encounter for removal of sutures snw Followup: snw - With: Emergency Department - When: As needed - Reason: Worsening of condition Followup: snw - With: Private Physician - When: 2 - 3 days - Reason: Recheck today's complaints, Continuance of care, Re-evaluation by your physician Discharge Instructions: - Discharge Summary Sheet snw - Suture Removal, Care After snw - Wound Care, Adult snw Forms: - Medication Reconciliation Form snw - Thank You Letter snw - Antibiotic Education snw - Prescription Opioid Use snw - Patient Portal Instructions snw - Leadership Thank You Letter snw Signatures: Patria Flores FNP-C [employer]UEST SERVICES LEAD-Csnw Nate Cleveland MD MD rn Lewis, Lynsay, RN RN ll1
[2023-04-20 15:59] VITALS: BP 119/69; TEMP 99.6; O2SAT 97
== END 2023-04-20 15:46 | disposition home or self-care (01) ==
LOC: ER 15:28
DX: S81.812D Laceration without foreign body, left lower leg, subsequent encounter (principal)
CPT/HCPCS: 99282